=== PATIENT | male | born 1985 | race Hispanic/Latino ===

== ENCOUNTER 2017-08-25 08:20 | Emergency (ER) | payer OTHER ==
[2017-08-25 08:50] VITALS: BP 133/84
[2017-08-25] MEDS ORDERED: MOTRIN PO ONE (10:09)
--- NOTE | 2017-08-25 10:14 | Emergency Department Report ---
ED Extremity Problem HPI - General Chief complaint: Extremity Injury, Lower Stated complaint: ANKLE PAIN X 6 WEEKS Time Seen by Provider: 08/25/17 10:03 Source: patient Mode of arrival: Ambulatory Limitations: No Limitations - History of Present Illness Initial comments: 31 year old male with a past medical history of seizures and atrial fibrillation (not on anticoagulants) presents to hospital with complaints of bilateral foot and ankle pain and bruising progressively worsening for the past 5 weeks. Patient was just seen at [facility] 4 days ago for the same complaint. He was told that his pain was secondary to walking too much. He had negative x-rays. Patient presents stating that he does not understand why he is having pain for the last 5-6 weeks because he walks on the time and never had this problem before. Patient is homeless. Patient requesting food because he has to walk to the nursing home after he is discharged. Patient does not currently have a primary care doctor. - Related Data Previous Rx's Medication Instructions Recorded Last Taken Type Ibuprofen [Motrin] 800 mg PO Q8HR PRN #30 tablet 08/25/17 Unknown Rx Allergies Allergy/AdvReac Type Severity Reaction Status Date / Time erythromycin base Allergy Unknown Verified 08/25/17 08:48 ED Review of Systems ROS: Stated complaint: ANKLE PAIN X 6 WEEKS Other details as noted in HPI Comment: All other systems reviewed and negative ED Past Medical Hx - Past Medical History Previous Medical History?: Yes Hx Seizures: Yes Additional medical history: afib - Surgical History Past Surgical History?: Yes Additional Surgical History: left arm surgery - Social History Smoking Status: Never Smoker Substance Use Type: None - Medications Home Medications: Home Medications Medication Instructions Recorded Confirmed Last Taken Type Ibuprofen [Motrin] 800 mg PO Q8HR PRN #30 tablet 08/25/17 Unknown Rx ED Physical Exam - General Limitations: No Limitations - Other Other exam information: General: No limitations, patient is alert in no acute distress Head exam: Atraumatic, normocephalic Eyes exam: Normal appearance, ENT: Moist mucous membrane, normal oropharynx Neck exam: Normal inspection, full range of motion, no meningismus nontender Respiratory exam: Clear to auscultation bilateral, no wheezes, rales, crackles Cardiovascular: Normal rate and rhythm Abdomen: Soft, nondistended, and nontender, with normal bowel sounds, no rebound, or guarding Extremity: Full range of motion, minimal swelling ankle areas. Tenderness to bilateral lateral foot just below the ankle joint. 2+ DP pulse. No warmth or erythema. Some peeling on the dorsum of the foot. Back: Normal Inspection, full range of motion, no tenderness Neurologic: Alert, oriented x3, cranial nerves intact, no motor or sensory deficit Psychiatric: normal affect, normal mood Skin: Warm, dry, intact ED Course Vital Signs 08/25/17 08:48 Temperature 97.6 F Pulse Rate 70 Respiratory 18 Rate Blood Pressure 133/84 O2 Sat by Pulse 98 Oximetry ED Medical Decision Making - Medical Decision Making Patient's the pain likely secondary to walking without proper foot support. Patient is homeless. Will be prescribed Motrin and follow-up recommended. Patient treated with Motrin in the ed - Differential Diagnosis arthritis, strain/overuse, infection Critical Care Time: No Critical care attestation.: If time is entered above; I have spent that time in minutes in the direct care of this critically ill patient, excluding procedure time. ED Disposition Clinical Impression: Bilateral ankle pain, Homeless Disposition: TO HOME OR SELFCARE Is pt being admited?: No Does the pt Need Aspirin: No Condition: Stable Instructions: Arthralgia (ED) Additional Instructions: Take medications as prescribed. Return if symptoms worsen. Follow-up with the clinic provided Prescriptions: Ibuprofen [Motrin] 800 mg PO Q8HR PRN #30 tablet PRN Reason: Pain Referrals: [facility] [Provider Group] - 3-5 Days Time of Disposition: 10:17
== END 2017-08-25 10:50 | disposition home or self-care (01) ==
LOC: ED 08:20
DX: M25.571 Pain in right ankle and joints of right foot (principal); M25.572 Pain in left ankle and joints of left foot; I48.91 Unspecified atrial fibrillation; Z88.1 Allergy status to other antibiotic agents; Z59.0 Homelessness
CPT/HCPCS: 99282